=== PATIENT | male | born 1975 ===

== ENCOUNTER 2018-07-08 10:49 | Emergency (ER) | payer OTHER ==
[2018-07-08 11:13] VITALS: BMI 29.9
[2018-07-08 11:29] VITALS: RESP 18; TEMP 98.5; O2SAT 99
[2018-07-08 12:14] LABS: URINE APPEARANCE CLEAR (CLEAR); URINE BILIRUBIN NEGATIVE (NEGATIVE); URINE BLOOD TRACE-INTACT (NEGATIVE); URINE COLOR YELLOW (YELLOW); URINE GLUCOSE (UA) NEGATIVE (NEGATIVE); URINE LEUKOCYTE ESTERASE NEGATIVE Leu/uL (NEGATIVE); URINE PROTEIN NEGATIVE mg/dL (<30 mg/dL); URINE UROBILINOGEN 0.2 E.U./dL (<1 E.U./dL)
--- NOTE | 2018-07-08 12:34 | ED PDOC ---
Arrival/HPI - General Chief Complaint: Lower Extremity Problem/Injury Time Seen by Provider: 07/08/18 11:31 Historian: Patient, Family - History of Present Illness Narrative History of Present Illness (Text): 07/08/18 12:18 43 yo male w/o significant PMHx come in for evaluation of Left lower back/ buttock pain radiating down to left leg gradually developed for past 2 weeks. Pt reports, pain is constant now, aching, worse with ambulation/movement. Pt denies known trauma or injury, fever, chills, sore throat, CP, SOB, abd. pain, N /V, denies UTI sx, saddle anesthesia, incontinence, denies weakness, sensory or vascular deficits to B/L UEs and LEs. Ambulate to Ed for evaluation, not in any apparent distress. Past Medical History - Provider Review Nursing Documentation Reviewed: Yes - Travel History Have you recently traveled outside [place] w/in the past 3 mons?: No - Past History Past History: No Previous - Tetanus Immunization Tetanus Immunization: Unknown - Psychiatric Hx Substance Use: No Family/Social History - Physician Review Nursing Documentation Reviewed: Yes Family/Social History: No Known Family HX Smoking Status: Never Smoked Hx Alcohol Use: Yes Frequency of alcohol use: Socially Hx Substance Use: No Allergies/Home Meds Allergies/Adverse Reactions: Allergies No Known Allergies Allergy (Verified 07/08/18 11:13) Review of Systems - Review of Systems Constitutional: Normal Eyes: Normal ENT: Normal Respiratory: Normal Cardiovascular: Normal Gastrointestinal: Normal Genitourinary Male: Normal Musculoskeletal: Back Pain Skin: Normal Neurological: Normal Endocrine: Normal Hemo/Lymphatic: Normal Psychiatric: Normal Physical Exam Vital Signs Temp Pulse Resp BP Pulse Ox 07/08/18 13:02 88 18 126/73 99 07/08/18 11:14 98.5 F 93 H 18 129/90 99 Temperature: Afebrile Blood Pressure: Normal Pulse: Regular Respiratory Rate: Normal Appearance: Positive for: Well-Appearing, Non-Toxic Pain Distress: Moderate Mental Status: Positive for: Alert and Oriented X 3 - Systems Exam Conjunctiva: Present: Normal Mouth: Present: Moist Mucous Membranes Neck: Present: Trachea Midline. No: MIDLINE TENDERNESS Respiratory/Chest: Present: Clear to Auscultation, Good Air Exchange. No: Respiratory Distress, Accessory Muscle Use Cardiovascular: Present: Regular Rate and Rhythm, Normal S1, S2. No: Murmurs Abdomen: No: Tenderness, Distention, Peritoneal Signs Back: Present: Paraspinal Tenderness (Letf sided lumbar with mod muscle spasm extend down to left gluteus. No skin changes, no palpable deformity.). No: CVA Tenderness, Midline Tenderness Upper Extremity: Present: Normal ROM. No: Deformity Lower Extremity: Present: Normal ROM. No: Edema, CALF TENDERNESS, Deformity Neurological: Present: GCS=15, Speech Normal, Motor Func Grossly Intact, Normal Sensory Function, Norm Deep Tendon Reflexes, Gait Normal Skin: Present: Warm, Dry, Normal Color. No: Rashes Psychiatric: Present: Alert, Oriented x 3, Normal Insight, Normal Concentration Medical Decision Making ED Course and Treatment: 07/08/18 12:10 On re-evaluation, pt is afebrile, hemodynamicaly stable. Non-toxic, tolerate Po well in ED. Ambulatory in ED with stable gait. ENT: no acute findings. uvula midline, no edema. Neck: Supple, (-) JVD, (-) meningeal sign Lungs: CTA B/L, BS equal B/L Abd: benign, (-) guarding, (-) rebound, (-) localized tenderness Back: (-) CVA tenderness. Neuorlogicaly intact. Imaging review and appears normal. UA- normal study. Pt has clinical findings c/w Left side lumbar radiculopathy, left sciatica. Pt advised on course of ds. ref. to f/u with PMD in 2-3 days for re-eval. return to ED if any worsening or new changes. - Lab Interpretations Lab Results: Lab Results 07/08/18 12:08: Urine Color Yellow, Urine Appearance Clear, Urine pH 6.0, Ur Specific Tower 1.025, Urine Protein Negative, Urine Glucose (UA) Negative, Urine Ketones Negative, Urine Blood Trace-intact H, Urine Nitrate Negative, Urine Bilirubin Negative, Urine Urobilinogen 0.2, Ur Leukocyte Esterase Negative , Urine RBC 1 - 3, Urine WBC 0 - 2, Ur Epithelial Cells None, Urine Bacteria Few - RAD Interpretation Radiology Orders: 07/08/18 11:31 LS SPINE AP/LAT [RAD] Stat normal study. - Medication Orders Current Medication Orders: Discontinued Medications Gabapentin (Neurontin) 300 mg PO STAT ONE PRN Reason: Protocol Stop: 07/08/18 11:46 Last Admin: 07/08/18 11:50 Dose: 300 mg Prednisone (Prednisone Tab) 60 mg PO STAT STA Stop: 07/08/18 11:32 Last Admin: 07/08/18 11:49 Dose: 60 mg Tramadol HCl (Ultram) 50 mg PO STAT STA Stop: 07/08/18 11:32 Last Admin: 07/08/18 11:49 Dose: 50 mg MAR Pain Assessment Document 07/08/18 11:49 HI (Rec: 07/08/18 11:49 HI [facility] [id number]) Pain Reassessment Is this a pain reassessment? No Disposition/Present on Arrival - Present on Arrival Any Indicators Present on Arrival: No History of DVT/PE: No History of Uncontrolled Diabetes: No Urinary Catheter: No History of Decub. Ulcer: No History Surgical Site Infection Following: None - Disposition Have Diagnosis and Disposition been Completed?: Yes Diagnosis: Lumbar radiculopathy, Sciatica Disposition: HOME/ ROUTINE Disposition Time: 12:44 Patient Plan: Discharge Condition: STABLE Discharge Instructions (ExitCare): Sciatica, Radiculopathy (DC) Print Language: JAPANESE Additional Instructions: Light duty, avoid physical activity for 1 week Take pain medication as prescribed Follow up with PMD in 2-3 days for re-evaluation. return to ED if any worsening or new changes. Prescriptions: Gabapentin 300 mg PO BID #14 capsule Methocarbamol [Robaxin] 500 mg PO TID #20 tab Prednisone [Deltasone] 40 mg PO DAILY #6 tablet Forms: [employer] (Belizean)
[2018-07-08 12:37] LABS: URINE BACTERIA FEW (NEG); URINE WBC 0 - 2 /hpf (0-6)
[2018-07-08 13:03] VITALS: BP 126/73; PULSE 88
--- NOTE | 2018-07-08 13:58 | RAD ---
Date of service: 07/08/2018 PROCEDURE: Radiographs of the Lumbar Spine. HISTORY: pain COMPARISON: No prior. FINDINGS: BONES: Normal alignment. No listhesis. No fracture. DISC SPACES: Unremarkable. OTHER FINDINGS: None. IMPRESSION: Unremarkable radiographs of the lumbar spine.
== END 2018-07-08 13:02 | disposition home or self-care (01) ==
LOC: ED 10:49
DX: M54.16 Radiculopathy, lumbar region (principal); M54.32 Sciatica, left side

== ENCOUNTER 2018-07-29 08:57 | Emergency (ER) | payer OTHER ==
[2018-07-29 08:57] VITALS: BMI 29.9
[2018-07-29 09:23] VITALS: TEMP 98.9
--- NOTE | 2018-07-29 09:46 | ED PDOC ---
Arrival/HPI - General Chief Complaint: Back Pain Time Seen by Provider: 07/29/18 09:15 Historian: Patient - History of Present Illness Narrative History of Present Illness (Text): 07/29/18 09:42 43yr old male presents today with a 3 week history of left sided back pain radiating into the left leg. pt states he has been taking medications without improvement in symptoms. pt describes an electric shock shooting down the leg. he denies numbness weakness or tingling in the extremity. pt states the pain is now in the upper back. he denies urinary symptoms. Patient denies fevers or chills. He denies any trauma or injury. Patient states the pain started about 3 weeks ago when he was getting out of bed. Patient states she's been taking prescribed medications for pain at home without improvement. Patient denies bladder or bowel incontinence. He denies saddle paresthesias. Past Medical History - Provider Review Nursing Documentation Reviewed: Yes - Travel History Have you recently traveled outside [place] w/in the past 3 mons?: No - Past History Past History: No Previous - Infectious Disease Hx of Infectious Diseases: None - Tetanus Immunization Tetanus Immunization: Unknown - Cardiac Hx Cardiac Disorders: No - Renal Hx Renal Disorder: No - Psychiatric Hx Substance Use: No - Anesthesia Hx Anesthesia: No Family/Social History - Physician Review Nursing Documentation Reviewed: Yes Family/Social History: Unknown Family HX Smoking Status: Never Smoked Hx Alcohol Use: Yes Frequency of alcohol use: Socially Hx Substance Use: No Allergies/Home Meds Allergies/Adverse Reactions: Allergies No Known Allergies Allergy (Verified 07/08/18 11:13) Review of Systems - Review of Systems Constitutional: absent: Fatigue, Fevers Respiratory: absent: SOB, Cough Cardiovascular: absent: Chest Pain, Palpitations Gastrointestinal: absent: Abdominal Pain, Constipation, Diarrhea, Nausea, Vomiting Genitourinary Male: absent: Dysuria, Frequency, Hematuria, Urinary Output Changes Musculoskeletal: Back Pain. absent: Neck Pain Skin: absent: Rash, Pruritis Neurological: absent: Headache, Dizziness Psychiatric: absent: Anxiety, Depression Physical Exam Vital Signs Reviewed: Yes Vital Signs Temp Pulse Resp BP Pulse Ox 07/29/18 11:41 70 18 126/85 96 07/29/18 09:16 98.9 F 77 16 172/82 H 99 Temperature: Afebrile Blood Pressure: Hypertensive Pulse: Regular Respiratory Rate: Normal Appearance: Positive for: Well-Appearing, Non-Toxic, Comfortable Pain Distress: None Mental Status: Positive for: Alert and Oriented X 3 - Systems Exam Head: Present: Atraumatic Mouth: Present: Moist Mucous Membranes Neck: Present: Normal Range of Motion Respiratory/Chest: Present: Clear to Auscultation, Good Air Exchange. No: Respiratory Distress, Accessory Muscle Use Cardiovascular: Present: Regular Rate and Rhythm, Normal S1, S2. No: Murmurs Abdomen: No: Tenderness, Distention, Peritoneal Signs, Rebound, Guarding Back: Present: Normal Inspection, Paraspinal Tenderness (+ left sided paraspinal tenderness), Pain with Leg Raise. No: CVA Tenderness, Midline Tenderness Upper Extremity: Present: Normal ROM Lower Extremity: Present: Normal ROM, Neurovascularly Intact Neurological: Present: GCS=15, Speech Normal Skin: Present: Warm, Dry, Normal Color. No: Rashes Psychiatric: Present: Alert, Oriented x 3 Medical Decision Making ED Course and Treatment: 07/29/18 09:53 Patient nontoxic well-appearing in no distress with stable vital signs. cbc; wbc; 3.0 cmp: wnl UA: wnl abd pelvis CT; FINDINGS: LOWER THORAX: Unremarkable. LIVER: Unremarkable. No gross lesion or ductal dilatation. GALLBLADDER AND BILE DUCTS: Unremarkable. PANCREAS: Unremarkable. No gross lesion or ductal dilatation. SPLEEN: Unremarkable. ADRENALS: Unremarkable. No mass. KIDNEYS AND URETERS: Unremarkable. No hydronephrosis. No solid mass. VASCULATURE: Unremarkable. No aortic aneurysm. BOWEL: Unremarkable. No obstruction. No gross mural thickening. APPENDIX: Normal appendix. PERITONEUM: Unremarkable. No free fluid. No free air. LYMPH NODES: Unremarkable. No enlarged lymph nodes. BLADDER: Unremarkable. REPRODUCTIVE: Unremarkable. BONES: No acute fracture. OTHER FINDINGS: None. IMPRESSION: No acute findings pt was given toradol and valium po Patient reassessment: Feeling better with medications ambulating with a steady gait. Muscle strength 5 out of 5 bilaterally. I advised to followup with the orthopedist within the next 2 days. Return if symptoms worsen persist or new symptoms develop Patient verbalizes understanding of discharge instructions and need for immediate followup. all aspects of this case were discussed the attending of record. Impression: Back pain Motrin every 6 hours as needed for pain Valium one tablet every 8 hours as needed for muscle spasms: May cause drowsiness Followup with the orthopedist/back specialist within the next 2 days Followup with primary care physician within the next 2 days Return if symptoms worsen persist or if new symptoms develop Reassessment Condition: Re-examined, Improved - Lab Interpretations Lab Results: 07/29/18 10:00 07/29/18 10:00 Lab Results 07/29/18 10:00: WBC 3.0 L, RBC 4.66, Hgb 14.6, Hct 40.3 L, MCV 86.5, MCH 31.3, MCHC 36.2, RDW 12.4, Plt Count 184, MPV 10.3, Gran % 40.4 L, Lymph % (Auto) 49.5 H, [place] % (Auto) 8.4 H, Eos % (Auto) 1.7, Baso % (Auto) 0.0, Gran # 1.20 L , Lymph # (Auto) 1.5, [place] # (Auto) 0.3, Eos # (Auto) 0.1, Baso # (Auto) 0.00 07/29/18 10:00: Sodium 141, Potassium 4.9, Chloride 103, Carbon Dioxide 27, Anion Gap 16, BUN 16, Creatinine 0.9, Est GFR ( Amer) > 60, Est GFR (Non- Af Amer) > 60, Random Glucose 106, Calcium 9.6, Total Bilirubin 1.0, AST 26, ALT 37, Alkaline Phosphatase 56, Total Protein 7.5, Albumin 4.3, Globulin 3.2, Albumin/Globulin Ratio 1.3 07/29/18 10:00: Urine Color Yellow, Urine Appearance Clear, Urine pH 6.0, Ur Specific [place] >= 1.030, Urine Protein Negative, Urine Glucose (UA) Negative, Urine Ketones Negative, Urine Blood Negative, Urine Nitrate Negative, Urine Bilirubin Negative, Urine Urobilinogen 0.2, Ur Leukocyte Esterase Negative - RAD Interpretation Radiology Orders: 07/29/18 11:01 ABD & PELVIS IV CONTRAST ONLY [CT] Stat - Medication Orders Current Medication Orders: Discontinued Medications Diazepam (Valium) 5 mg PO ONCE ONE Stop: 07/29/18 09:36 Last Admin: 07/29/18 10:23 Dose: 5 mg Ketorolac Tromethamine (Toradol) 30 mg IVP STAT STA Stop: 07/29/18 09:36 Last Admin: 07/29/18 10:23 Dose: 30 mg MAR Pain Assessment Document 07/29/18 10:23 GMD (Rec: 07/29/18 10:23 GMD [id number]) Pain Reassessment Is this a pain reassessment? No IVP Administration Document 07/29/18 10:23 GMD (Rec: 07/29/18 10:23 GMD [id number]) Charges for Administration # of IVP Administrations 1 Disposition/Present on Arrival - Present on Arrival Any Indicators Present on Arrival: No History of DVT/PE: No History of Uncontrolled Diabetes: No Urinary Catheter: No History of Decub. Ulcer: No History Surgical Site Infection Following: None - Disposition Have Diagnosis and Disposition been Completed?: Yes Diagnosis: Back pain Disposition: HOME/ ROUTINE Disposition Time: 12:36 Patient Plan: Discharge Condition: GOOD Additional Instructions: Motrin every 6 hours as needed for pain Valium one tablet every 8 hours as needed for muscle spasms: May cause drowsiness Followup with the orthopedist/back specialist within the next 2 days Followup with primary care physician within the next 2 days Return if symptoms worsen persist or if new symptoms develop Prescriptions: diaZEpam [Valium] 2 mg PO Q8H PRN #6 tab PRN Reason: muscle spasms Ibuprofen [Motrin] 600 mg PO Q6H PRN #20 tab PRN Reason: pain/fever reduction Referrals: Aditya Marin MD [Staff Provider] - Follow up with primary Celia Barry MD [Medical Doctor] - Follow up with primary [facility] [Outside] - Follow up with primary [facility] [Outside] - Follow up with primary Forms: [employer] (Mauritian), WORK NOTE
[2018-07-29 10:19] LABS: EOS # 0.1 (0.0-0.7); EOS % 1.7 % (1.5-5.0); GRAN # 1.2 (1.4-6.5); GRAN % 40.4 % (50.0-68.0); HEMOGLOBIN 14.6 g/dL (14.0-18.0); LYMPH # 1.5 (1.2-3.4); LYMPH % 49.5 % (22.0-35.0); MEAN CELL VOLUME 86.5 fl (80.0-105.0); MEAN CORPUSCULAR HEMOGLOBIN 31.3 pg (25.0-35.0); MEAN CORPUSCULAR HGB CONC 36.2 g/dl (31.0-37.0); MEAN PLATELET VOLUME 10.3 fl (7.0-11.0); MONO # 0.3 (0.1-0.6); MONO % 8.4 % (1.0-6.0); RBC 4.66 10^6/uL (3.5-6.1); RED CELL DISTRIBUTION WIDTH 12.4 % (11.5-14.5)
[2018-07-29 10:27] LABS: ALB/GLOB RATIO 1.3 (1.1-1.8); ALBUMIN 4.3 g/dL (3.0-4.8); ALT/SGPT 37 U/L (7-56); AST/SGOT 26 U/L (17-59); BLOOD UREA NITROGEN 16 mg/dL (7-21); CALCIUM 9.6 mg/dL (8.4-10.5); GFR NON-AFRICAN AMERICAN > 60; URINE BILIRUBIN NEGATIVE (NEGATIVE); URINE BLOOD NEGATIVE (NEGATIVE); URINE GLUCOSE (UA) NEGATIVE (NEGATIVE); URINE LEUKOCYTE ESTERASE NEGATIVE Leu/uL (NEGATIVE); URINE PROTEIN NEGATIVE mg/dL (<30 mg/dL); URINE UROBILINOGEN 0.2 E.U./dL (<1 E.U./dL)
[2018-07-29 10:34] LABS: URINE APPEARANCE CLEAR (CLEAR); URINE COLOR YELLOW (YELLOW)
[2018-07-29] MEDS ORDERED: Iohexol 350 MG/100 ML VIAL ONE (11:10)
[2018-07-29 11:42] VITALS: BP 126/85; PULSE 70; RESP 18; O2SAT 96
--- NOTE | 2018-07-29 11:46 | CT ---
Date of service: 07/29/2018 PROCEDURE: CT Abdomen and Pelvis with contrast HISTORY: BACK PAIN COMPARISON: None. TECHNIQUE: Contrast dose: 100 cc of Omni 350 Radiation dose: Total exam DLP = 722 mGy-cm. This CT exam was performed using one or more of the following dose reduction techniques: Automated exposure control, adjustment of the mA and/or kV according to patient size, and/or use of iterative reconstruction technique. FINDINGS: LOWER THORAX: Unremarkable. LIVER: Unremarkable. No gross lesion or ductal dilatation. GALLBLADDER AND BILE DUCTS: Unremarkable. PANCREAS: Unremarkable. No gross lesion or ductal dilatation. SPLEEN: Unremarkable. ADRENALS: Unremarkable. No mass. KIDNEYS AND URETERS: Unremarkable. No hydronephrosis. No solid mass. VASCULATURE: Unremarkable. No aortic aneurysm. BOWEL: Unremarkable. No obstruction. No gross mural thickening. APPENDIX: Normal appendix. PERITONEUM: Unremarkable. No free fluid. No free air. LYMPH NODES: Unremarkable. No enlarged lymph nodes. BLADDER: Unremarkable. REPRODUCTIVE: Unremarkable. BONES: No acute fracture. OTHER FINDINGS: None. IMPRESSION: No acute findings
== END 2018-07-29 12:49 | disposition home or self-care (01) ==
LOC: ED 08:57
DX: M54.9 Dorsalgia, unspecified (principal)
CPT/HCPCS: 74177; 80053; 81003; 85025; 96374; 99285; J1885; Q9967